=== PATIENT | female | born 1960 | race African-American/Black ===

== ENCOUNTER 2021-04-24 15:10 | Outpatient (CLI) | payer OTHER | END 2021-04-24 15:11 | disposition home or self-care (01) | LOC: BICMAMMO 15:10 | PROVIDERS: ATTEND Family Medicine | DX: Z12.31 Encounter for screening mammogram for malignant neoplasm of breast (principal) | CPT/HCPCS: 77063; 77067 ==

== ENCOUNTER 2022-06-21 15:34 | Outpatient (CLI) | payer OTHER | END 2022-06-21 15:35 | disposition home or self-care (01) | LOC: BICMAMMO 15:34 | PROVIDERS: ATTEND Family Medicine | DX: Z12.31 Encounter for screening mammogram for malignant neoplasm of breast (principal); Z80.3 Family history of malignant neoplasm of breast | CPT/HCPCS: 77063; 77067 ==

== ENCOUNTER 2024-03-23 13:22 | Outpatient (CLI) | payer OTHER | END 2024-03-23 13:23 | disposition home or self-care (01) | LOC: BICMAMMO 13:22 | PROVIDERS: ATTEND Family Medicine | DX: Z12.31 Encounter for screening mammogram for malignant neoplasm of breast (principal); Z80.3 Family history of malignant neoplasm of breast | CPT/HCPCS: 77063; 77067 ==